=== PATIENT | female | born 1950 | race Caucasian/White ===

== ENCOUNTER → 2017-04-20 | Outpatient (POV) | payer MEDICARE, SELFPAY | PROVIDERS: Visit Provider Internal Medicine Cardiovascular Disease | DX: R00.0 Tachycardia, unspecified (principal); I25.10 Atherosclerotic heart disease of native coronary artery without angina pectoris; I11.9 Hypertensive heart disease without heart failure; E78.5 Hyperlipidemia, unspecified; I42.9 Cardiomyopathy, unspecified; I49.5 Sick sinus syndrome; Z95.0 Presence of cardiac pacemaker; G47.33 Obstructive sleep apnea (adult) (pediatric) | CPT/HCPCS: 93005 ==

== ENCOUNTER 2017-10-19 16:12 | Observation (INO) | payer MEDICARE, SELFPAY ==
[2017-10-18 13:08] VITALS: BMI 40.2
[2017-10-19] VITALS (17 sets, daily range): BP systolic 107–132; BP diastolic 53–82; PULSE 59–125; RESP 14–20; TEMP 36.1–36.6; O2SAT 94–100; BMI 40.4
--- NOTE | 2017-10-19 | XR_ITS ---
XR chest portable HISTORY: ITS.REASON: atrial lead revision ORDERING PHYSICIAN: Roverto Jo MD PATIENT AGE: 67 years COMPARISON: None FINDINGS: Mild cardiomegaly without failure. Bipolar pacemaker is present from left subclavian approach. Right atrial and right ventricular leads are present in good position. No evidence of pneumothorax. Skin clips are present in the left upper chest. Prominent right peritracheal calcified lymph node once again noted. IMPRESSION: Cardiomegaly with bipolar pacemaker. No evidence of pneumothorax or other acute trauma
--- NOTE | 2017-10-19 08:02 | P.PN_ITS ---
[facility] Anesthesia Checklist - Structural Data Admitted From: Home Planned Operative Procedure/s: pacemaker lead revision Consent for Planned Operative Procedure(s) Verified: Yes Verified Documents: Surgical Consent - Airway Assessment C-Spine Mobility Assessed: Yes TMJ Mobility Assessed: Yes Dentition: Good Dentition - Neurological Assessment Level of Consciousness: Awake, Alert, Appropriate - Anesthesia Plan Anesthesia Risk discussed: Yes Anesthesia Plan: Verified ASA Class: III Anesthesia Type: MAC [facility] Anesthesia HX I have reviewed the patient's past medical history: Yes Medical History: Reports:: Cancer, Coronary Artery Disease, Hyperlipidemia, Hypertension, Internal Pacemaker, Kidney Stones Denies:: Diabetes Mellitus Type 1, Diabetes Mellitus Type 2, MRSA (h/o c-diff ) Other Medical History: Reports: Arthritis, Fibromyalgia, Hypothyroidism Laterality Cases: Bilateral: Arthroscopy Knee Other Surgeries: Yes: Angioplasty, Appendectomy, Hysterectomy-Total, Pacemaker, Other (Cholecystectomy) Amputation: No Fractures: No *Family Hx:: Heart Attack, Stroke
--- NOTE | 2017-10-19 09:00 | XR_ITS ---
XR pacemaker defibrillator CLINICAL INDICATION: Pacemaker insertion ITS.REASON: ATRIAL LEAD REVISION ORDERING PHYSICIAN: Roverto Jo MD PATIENT AGE: 67 years Comparison: None FINDINGS: 3 images submitted with C-arm showing interval insertion of bipolar pacemaker IMPRESSION: 3 images submitted with C-arm showing interval insertion of bipolar pacemaker Fluoroscopy time: 1 minute and 53 seconds
--- NOTE | 2017-10-19 16:23 | HMH.HPDC ---
General - General Admission date:: 10-19-2017 *Admission Date: 10/19/17 *Chief complaint: Atrial lead revision *History of present illness: 67-year-old white female with history of permanent pacemaker for sick sinus syndrome was noted to have no atrial capture on recent interrogation and was brought to the operative room as an outpatient for atrial lead revision. Initial operation with atrial lead revision and placement uncomplicated. Postoperatively atrial lead moved and patient required a second operation for atrial lead placement. Due to 2 surgeries in the same day the patient is to be kept overnight for observation. She had no complications from surgery either time. Patient has a history of coronary artery disease with coronary artery stenting in 2008, cardiac catheterization in 2017 showing mild coronary artery disease and an echocardiogram in early 2016 showing an ejection fraction of 40%. Patient has a history of frequent PVCs that required beta-sharon therapy. Patient developed significant bradycardia and had pacemaker implantation at that time. [facility] History Medical History: Reports:: Cancer, Coronary Artery Disease, Hyperlipidemia, Hypertension, Internal Pacemaker, Kidney Stones Denies:: Diabetes Mellitus Type 1, Diabetes Mellitus Type 2, MRSA (h/o c-diff), Seizures Other Medical History: Reports: Arthritis, Fibromyalgia, Hypothyroidism. Denies: Blood Transfusion Reaction Laterality Cases: Bilateral: Arthroscopy Knee Other Surgeries: Yes: Angioplasty, Appendectomy, Hysterectomy-Total, Pacemaker, Other (Cholecystectomy) Amputation: No Fractures: No - *Social History Educational Level: Completed College Smoking Status: Never smoker Alcohol Intake: never Occupational Status: retired Housing: house Household Members: spouse - Psychiatric History Expresses thoughts of harming self/others: None Suicide Plan Description: No Plan *Family Hx:: Heart Attack, Stroke Review of Systems - *Cardiovascular Denies chest pain, Denies shortness of breath with activity - *Respiratory Denies shortness of breath - *Gastrointestinal Denies abdominal pain - *Neurologic Denies abnormal walking, Denies seizure-like activity, Denies headache(s) Exam Vital signs and Labs for Last 24 Hours: Temp Pulse Resp BP Pulse Ox 97.6 F 123 H 20 132/65 98 10/19/17 13:40 10/19/17 13:40 10/19/17 13:40 10/19/17 13:40 10/19/17 13:40 I & O for Last 24 hours: Intake & Output 10/17/17 10/18/17 10/19/17 10/20/17 11:59 11:59 11:59 11:59 Intake Total Output Total 300 / 300 Balance -290 / -290 Weight 220 lb 0.271 oz - *Routine Neck Exam Absent: JVD, carotid bruit - *Routine Respiratory Exam Present: CTA bilaterally - *Routine Cardiovascular Exam Present: RRR. Absent: murmur, gallop - *Routine Extremities Exam Absent: edema - *Routine Neurological Exam Present: alert, oriented X3, moving all extremities Hospital Course Hospital Course: 67-year-old white female admitted after atrial lead revision for observation. Patient did have PVCs on telemetry which were symptomatic and treated with bisoprolol 5 mg daily with improvement in symptoms. This morning the patient is feeling well and ready to go home. Home medications will resume with the exception of increasing her bisoprolol to 5 mg daily. She will be sent home with Idalia 7.5/325 mg 1-2 every 6 as needed. She will have a follow-up with Dr. Jo in 10 days in [place]. DS: Diagnosis - Discharge Diagnosis (1) Cardiac pacemaker in situ Status: Acute (2) Cardiomyopathy Status: Acute (3) Coronary arteriosclerosis Status: Acute (4) Hypertensive heart disease Status: Acute (5) Pacemaker lead malfunction Status: Acute (6) Sick sinus syndrome Status: Acute Discharge Medications Discharge Medications: Home Medications Medication Instructions Recorded Confirmed Type aspirin 81 mg tablet,del
--- NOTE | 2017-10-19 16:27 | P.HPDS_ITS ---
General - General Admission date:: 10-19-2017 *Admission Date: 10/19/17 *Chief complaint: Atrial lead revision *History of present illness: 67-year-old white female with history of permanent pacemaker for sick sinus syndrome was noted to have no atrial capture on recent interrogation and was brought to the operative room as an outpatient for atrial lead revision. Initial operation with atrial lead revision and placement uncomplicated. Postoperatively atrial lead moved and patient required a second operation for atrial lead placement. Due to 2 surgeries in the same day the patient is to be kept overnight for observation. She had no complications from surgery either time. Patient has a history of coronary artery disease with coronary artery stenting in 2008, cardiac catheterization in 2017 showing mild coronary artery disease and an echocardiogram in early 2016 showing an ejection fraction of 40%. Patient has a history of frequent PVCs that required beta-sharon therapy. Patient developed significant bradycardia and had pacemaker implantation at that time. [facility] History Medical History: Reports:: Cancer, Coronary Artery Disease, Hyperlipidemia, Hypertension, Internal Pacemaker, Kidney Stones Denies:: Diabetes Mellitus Type 1, Diabetes Mellitus Type 2, MRSA (h/o c-diff ), Seizures Other Medical History: Reports: Arthritis, Fibromyalgia, Hypothyroidism. Denies : Blood Transfusion Reaction Laterality Cases: Bilateral: Arthroscopy Knee Other Surgeries: Yes: Angioplasty, Appendectomy, Hysterectomy-Total, Pacemaker, Other (Cholecystectomy) Amputation: No Fractures: No - *Social History Educational Level: Completed College Smoking Status: Never smoker Alcohol Intake: never Occupational Status: retired Housing: house Household Members: spouse - Psychiatric History Expresses thoughts of harming self/others: None Suicide Plan Description: No Plan *Family Hx:: Heart Attack, Stroke Review of Systems - *Cardiovascular Denies chest pain, Denies shortness of breath with activity - *Respiratory Denies shortness of breath - *Gastrointestinal Denies abdominal pain - *Neurologic Denies abnormal walking, Denies seizure-like activity, Denies headache(s) Exam Vital signs and Labs for Last 24 Hours: Temp Pulse Resp BP Pulse Ox 97.6 F 123 H 20 132/65 98 10/19/17 13:40 10/19/17 13:40 10/19/17 13:40 10/19/17 13:40 10/19/17 13:40 I & O for Last 24 hours: Intake & Output 10/17/17 10/18/17 10/19/17 10/20/17 11:59 11:59 11:59 11:59 Intake Total Output Total 300 / 300 Balance -290 / -290 Weight 220 lb 0.271 oz - *Routine Neck Exam Absent: JVD, carotid bruit - *Routine Respiratory Exam Present: CTA bilaterally - *Routine Cardiovascular Exam Present: RRR. Absent: murmur, gallop - *Routine Extremities Exam Absent: edema - *Routine Neurological Exam Present: alert, oriented X3, moving all extremities Hospital Course Hospital Course: 67-year-old white female admitted after atrial lead revision for observation. Patient did have PVCs on telemetry which were symptomatic and treated with bisoprolol 5 mg daily with improvement in symptoms. This morning the patient is feeling well and ready to go home. Home medications will resume with the exception of increasing her bisoprolol to 5 mg daily. She will be sent home with Rolla 7.5/325 mg 1-2 every 6 as needed. She will have a follow-up wit
[2017-10-20] VITALS: BP 112/55; PULSE 58; PULSE 64; RESP 16; TEMP 37.2; O2SAT 97
[2017-10-20 04:00] VITALS: BP 102/51; PULSE 60; PULSE 61; RESP 16; TEMP 36.6; O2SAT 98
--- NOTE | 2017-10-20 04:03 | PC.NURSE ---
PATIENT SEEMS HAVE RESTED WELL THIS SHIFT. SHE C/O FLUTTERING SENSATION EARLIER IN SHIFT (SEE PREVIOUS NOTE), HOWEVER HAS NOT COMPLAINED OF THIS ANYMORE THIS SHIFT. PATIENT HAS RECEIVED PAIN MEDICATION X2 FOR INCISION PAIN, WHICH SHE STATED WAS EFFECTIVE. GIFT WRAPPER CONTINUES TO SHOW AN AV PACED RHYTHM WITH PVCS. DRESSING TO LEFT CHEST WALL IS CDI. CPAP IS IN PLACE. PATIENT IS INDEPENDENT WITH ADLS. PATIENT IS CURRENTLY IN BED ASLEEP. NO OTHER PROBLEMS NOTED AT THIS TIME. VSS. WILL CONTINUE TO MONITOR.
--- NOTE | 2017-10-20 07:00 | XR_ITS ---
XR chest 2V Ordering Physician: Roverto Jo MD Patient Age: 67 years: Female HISTORY: ITS.REASON: post op pacer wire repositioning Pacemaker wire repositioning difficult TECHNIQUE: PA lateral chest COMPARISON: portable chest 10/19/2017 at 1500 hours. Also fluoroscopy from pacemaker placement 10/19/2017 at 1357 hours & 1104 hours. November 2016 pCXR also utilized for comparison FINDINGS Images reviewed with with Wiley & other cardiology pediatric dental assistant Pacemaker overlies the left chest. Skin jennifer reflect recent involvement here accessing the pacemaker. On yesterday's 10/19/2017 radiograph the atrial pacemaker wire was directed laterally at the RA. On today's study it is moved to a more midline vertical position at likely at entry to the right atria or caval atrial junction region. Images reviewed with cardiology staff The ventricular lead remains stable position. Unchanged. The pacemaker itself appears unchanged overlying the left chest. The lungs remain clear no active disease. Mild cardiomegaly left ventricular configuration. The dense calcified right paratracheal node is again observed. Multiple monitor leads evident IMPRESSION: 1. Lungs clear no active disease in the chest 2. Cardiomegaly with pacemaker overlying the left chest. The ventricular lead appears stable. However would note that there is subtle change in the position and course of the atrial lead when compared to yesterday's study. . These images reviewed with cardiology staff members sent for
[2017-10-20 07:02] LABS: Basophils % 0.4 % (0.1-2.0); Eosinophils # 0.1 K/mm3 (0.0-0.4); Eosinophils % 1.6 % (0.1-12.0); Hemoglobin 13.8 g/dL (12.2-16.2); Lymphocytes # 2.3 K/mm3 (0.7-4.5); Mean Corpuscular HGB Conc 32.1 g/dL (31.8-35.4); Mean Corpuscular Volume 93.4 fl (81-99); Monocytes # 0.4 K/mm3 (0.1-1.0); Neutrophils # 3.9 K/mm3 (1.8-7.8); Platelet Count 218 K/mm3 (142-424); Red Cell Distribution Width 13.5 % (11.5-17.5); White Blood Count 6.8 K/mm3 (4.8-10.8)
--- NOTE | 2017-10-20 07:28 | HMH.PHAVTE ---
[facility] VTE Monitoring - Patient Demographics Admission date: 10/19/17 Report Date: 10/20/17 Time: 07:28 Allergies/Adverse Reactions: Patient Allergies No Known Allergies Allergy (Unverified 05/02/17 14:17) Height: 1.57 m Weight: 99.8 kg - VTE Risk Labs: VTE Related Lab Results Hgb 13.8 g/dL (12.2-16.2) 10/20/17 06:50 Hct 43.0 % (37.0-47.0) 10/20/17 06:50 Plt Count 218 K/mm3 (142-424) 10/20/17 06:50 VTE Score: 3 VTE Risk Level: Low Risk - Prophylaxis VTE Prophylaxis Ordered?: Yes Types of VTE Prophylaxis: TEDS Knee High Location of Applied Device: Bilateral Lower Extremeties - VTE Diagnosis Confirmed Treatment or plan recommended: Continue Current Treatment
--- NOTE | 2017-10-20 07:50 | PC.NURSE ---
REPORT GIVEN TO Jose HOLGUIN RN
[2017-10-20 08:00] VITALS: BP 123/63; PULSE 60; RESP 18; TEMP 36.9; O2SAT 96
--- NOTE | 2017-10-20 11:51 | CA_ITS ---
PROCEDURE: 2-D M-mode and color Doppler study INDICATIONS FOR THE TEST: Chest pain COPD Heart Murmur Tobacco Smoking Palpitations Fatigue Syncope Edema HypertensionXDiabetes Mellitus Rheumatic Fever SOB MEDRANO Obesity HyperlipidemiaX Family History HD Additional History PACEMAKER LEAD REVISION,CAD PATIENT INFORMATION HEIGHT: 61 WEIGHT:220 GENDER: Female B/P:132/65 2-D/M-MODE INTERPRETATION: 2-D MEASUREMENTS OBSERVED VALUES IN CMS Right Ventricular Dimension (RVDd) 3.2 Interventricular Septum (Thickness)(IVsd) .9 Left Ventricular Internal Dimensions(LVIDd) 5.6 Left Ventricular Posterior Wall (Thickness)(LVPWd) .9 Aortic Root 2.2 Aortic Cusp Separation 1.5 Left Atrial Dimensions (LAD) 3.6 2D 1. Left atrium is qualitatively moderately enlarged, left ventricle is qualitatively mildly dilated, there is severely reduced left ventricular systolic function, visually estimated ejection fraction approximately 25-30%, there is abnormal septal motion. 2. The right atrium and right ventricle are mildly enlarged, contractility of the right ventricle is normal, there is a pacemaker lead seen in the right atrium and right ventricle. 3. The aortic valve is minimally thickened and calcified. Leaflet continue to display good mobility. 4. The mitral valve leaflets are minimally thickened. 5. The tricuspid valve leaflets are minimally thickened. 6. The pulmonic valve is poorly visualized 7. No significant pericardial effusion noted. DOPPLER INTERROGATION: Doppler interrogation of the aortic, mitral and tricuspid valvular presence of mild mitral and moderate tricuspid regurgitation, calculated right ventricular systolic pressure is 44 mmHg consistent with moderate pulmonary hypertension, grade 1 diastolic dysfunction seen with tissue Doppler evidence of raised left atrial pressure. Inferior vena cava is dilated without significant inspiratory collapse. CONCLUSION: 1. Moderately enlarged left atrium, mildly dilated left ventricle, visually estimated ejection fraction of 25-30%, left ventricle is globally hypokinetic, there is abnormal septal motion. Grade 1 diastolic dysfunction seen with tissue Doppler evidence of raised left atrial pressure. Inferior vena cava is dilated without significant ventricular. 2. Mild mitral and moderate tricuspid regurgitation, calculated right ventricular systolic pressure 44 mmHg consistent with moderate pulmonary hypertension. 3. No significant pericardial effusion noted.
--- NOTE | 2017-10-20 11:52 | CT_ITS ---
CT chest w con Ordering Physician: Roverto Jo MD Patient Age: 67 years: Female HISTORY: ITS.REASON: Evaluate cardiac anatomy, ?carcinoid heart TECHNIQUE: Helical CT scanning performed at [facility] following 75 cc [id number]... Axial sagittal and coronal reconstructions performed on CT workstation. All CT scans at this facility used one or more dose reduction techniques , viz: automatic exposure control, ma/Kv adjustment per patient's size, (including targeted exam where dose matched to the indication; i.e. head); or iterative reconstruction technique COMPARISON :Plain films chest FINDINGS Thyroid. There is a 13 mm nodule lower pole right lobe of thyroid. With Likely a 11 mm mm nodule at the isthmus.. There is a near 18 mm ovoid area behind the head of the left clavicle. I tend to favor this is more the confluence of the generous left jugular and left subclavian vein rather than a early left supraclavicular node. But the timing on this particular study did allow filling of venous structures here to to confirm this as a venous structure. Viewing anatomy I still tend to favor this is a generous confluence of venous structures. . Superior mediastinum unremarkable.. No mediastinal adenopathy. Hilar regions satisfactory. No evidence of pulmonary embolism. Only faint contrast within the aorta but it appears satisfactory &. Normal caliber. Heart appears mildly enlarged with multichamber enlargement. There is good enhancement and contrast throughout the right atria and right ventricle. No good evidence of mass or lesion here. Perhaps some very minor trabeculations at the superior most aspect of the atria on coronal images but these are equivocal and minimal and could merely reflect some flow artifact. The atrial pacemaker lead is seen at midportion of generous size right atria. The ventricular AV pacemaker lead is seen extending to the tip of the right ventricle. The pacemaker itself overlies the upper left chest. No pericardial effusion. Coronary calcification most pronounced at the LAD Lung carrizales. Slight coarsening of interstitial pattern could reflect some mild interstitial edema possibly. Versus underlying some chronic interstitial changes as well. There do seem to be some mild fibrotic changes bilaterally at the DVT upper lung carrizales posteriorly. Favor fibrotic changes less likely early infiltrate at the posterior right upper lobe. Borderline airway thickening. No discrete pleural effusion. Understand dialysis patient. Images reviewed with [facility] cardiology. Uppermost abdomen with no significant findings. Cholecystectomy noted ------IMPRESSION --------- 1.. Cardiomegaly. Multichamber enlargement AV pacemaker and leads are identified. 2. Good contrast throughout right heart.-With this note generous size right atria but with no evidence of right atrial mass or lesion. 3. Mild diffuse interstitial coarsening which likely reflects some underlying interstitial fibrotic changes and possibly minimal vascular congestion/or mild fluid overload superimposed. 4. Additional Accentuation interstitial at posterior right lung apex.- Difficult to exclude minimal infiltrate here but didn't favor mainly viewing fibrotic changes. 5. Thyroid nodules: 13 mm nodule lower pole right lobe thyroid. & 11 mm nodule isthmus 6. Note 18 mm ovoid area at base of left neck, most likely reflecting generous vein at confluence of jugular & left subclavian vein. However today's timing No contrast here to confirm as venous structure on today's scan. Doubt supraclavicular node but warrants clinical follow-up
--- NOTE | 2017-10-20 11:57 | PC.NURSE ---
pt awaiting further testing before leaving per dr. hutchinson
--- NOTE | 2017-10-20 12:30 | PC.NURSE ---
FACE TO FACE WITH FRANCIE CONFIRMED WITH HIM THAT CT WITH CONTRAST WAS NEEDED. THAT PT IV WAS PULLED DUE TO BEING DISCHARGED AND WOULD HAVE TO BE REINSERTED. WAS INFORMED THAT CONTRAST WAS NEEDED AND THAT IV WOULD HAVE TO BE REINSERTED
[2017-10-20 13:09] LABS: Anion Gap 11.8 mEq/L (5-15); Blood Urea Nitrogen 13 mg/dL (7-18); Calcium 8.7 mg/dL (8.5-10.1); Carbon Dioxide 29 mmol/L (21.0-32.0); Chloride 107 mmol/L (98-107); Creatinine Clearance Estimated 42 mL/min (0-300); Creatinine,Serum 0.71 mg/dL (0.55-1.02); Estimated Glomerular Filt Rate 82 ml/min (>60); GFR (African American) 100 ML/MIN (>60); Glucose 96 mg/dL (74-106); Potassium 3.8 mmoL/L (3.5-5.1); Sodium 144 mmol/L (136-145)
--- NOTE | 2017-10-20 13:11 | PC.NURSE ---
report given to ashlee
--- NOTE | 2017-11-17 12:16 | HMH.PACER ---
[facility] Pacemaker - Pacemaker Placement Date of Procedure:: 10/26/17 Procedure Performed:: Pocket formation for permanent pacemaker placement Placement of atrial sensing pacing lead into the right atrial appendage Placement of ventricular sensing pacing lead into the right ventricular apex Permanent pacemaker placement Preoperative Diagnosis:: Sick Sinus Syndrome, Symptomatic Bradycardia Complications:: None Technique:: 1% Lidocaine with epinephrine used to anesthetize the left anterior aspect of the chest.Scalpel was used to make the initial cutaneous incision while electrocautery was used to dissect down into the fascia. The fascia was lifted off the pectoralis muscle and digitally manipulated creating a pocket for the pacemaker. The patient was then placed in Trendelenburg position and the subclavian vein was accessed via the Selinger technique. A 7 [place]an sheath was placed under fluoroscopic guidance into the subclavian vein. Following this, an additional wire was placed into the sheath. Now, with two wires inside the 7 [place]an sheath, this sheath was removed, maintaining the two wires in the subclavian vein. The sheath and dilator was then placed over one of the wires while keeping the other wire in place within the subclavian vein. The dilator was removed from the sheath. Using fluoroscopic guidance, the ventricular lead was placed into the right ventricular apex, screwed and secured into place. Electronic interrogation proved acceptable thresholds and voltage within the lead. Using 3-0 silk, the ventricular lead was then secured into place. Lead was secured to the fascia using the 3-0 silk. Following this, the sheath was pealed away. An additional 7 [place]an fresh sheath and dilator was placed over the existing wire. Using fluoroscopic guidance, the atrial lead was then placed into the right atrial appendage and screwed and secured in place. Electrical interrogation demonstrated acceptable thresholds and voltage numbers. The atrial lead was then secured into place using 3-0 silk and then the lead was finally secured to the fascia. With both the atria and ventricular leads in place with acceptable thresholds and sensitivity, the atrial and ventricular leads were placed into the pacemaker generator. Pacemaker generator was then secured to the fascia using 3-0 silk. 1 gram of Ancef was used to flush the pocket. Following the pacemaker being secured to the fascia and in place, Monocryl was used to close the subcutaneous layers while jennifer were used to close the cutaneous layer. A pressure dressing was placed and the patient was transferred to the postop holding area in stable condition for postoperative care. Impression:: Successful pocket formation for permanent pacemaker placement Successful placement of atrial and sensing pacing lead into the right atrial appendage Successful placement of ventricular sensing and pacing lead into the right ventricular apex Successful permanent pacemaker placement Plan: Postoperative wound care
--- NOTE | 2017-11-22 10:22 | HMH.PACER ---
[facility] Pacemaker - Pacemaker Placement Date of Procedure:: 10/19/17 Time of Procedure:: 08:30 Procedure Performed:: 1. Pocket revision 2. Removal of chronic right atrial sensing pacing lead. 3. Placement of an right atrial sensing pacing lead into the right atrial appendage. Preoperative Diagnosis:: Symptomatic Bradycardia Sick Sinus Syndrome Complications:: None Estimated Blood Loss (ml):: 10 Technique:: 1% lidocaine was used to anesthetize over the pacemaker site. Scalpel was used to make the cutaneous and incision and then dissected into the pocket. The generator was removed. The atrial lead was removed from the generator unscrewed from the left ventricle retracted under general pressure. Following this the left subclavian vein was accessed via the central technique and an 8 Romansh sheath was placed in the left subclavian vein. An atrial lead was then placed under fluoroscopic guidance into the right atrial appendage. The lead was secured into place with the distal screw. Interrogation was excellent therefore the lead was placed into the generator and the generator was placed back into the pocket after it was digitally manipulated and revised. 3-0 silk was used to secure the generator against the fascia. Following this Monocryl was used to close the subcutaneous area while jennifer were used to close the cutaneous area. Patient was transferred to the postop holding area in stable condition - Interrogation Narrative: Generator model number Assurity MRI 2272, Serial number [id number] New Atrial lead model number serial number [id number] model number [id number] Chronic Right Ventricular lead model number [id number], serial number [id number] RA: P wave >0.5 mV Threshold 0.75 V Impedance 460 Ohms pulse width 0.6ms RVA: Chronic R wave >12.0 mV Threshold 0.75 V Impedance 530 Ohms pulse width 0.4 ms Mode: DDDR with base tracking of 60 maximum tracking 125 Impression:: 1. Successful pocket revision 2. Successful removal of chronic atrial sensing pacing lead. 3. Successful placement of an new right atrial sensing pacing lead into the right atrial appendage. Plan: Postoperative wound care
--- NOTE | 2017-11-22 10:36 | P.PCN_ITS ---
[facility] Pacemaker - Pacemaker Placement Date of Procedure:: 10/19/17 Time of Procedure:: 08:30 Procedure Performed:: 1. Pocket revision 2. Removal of chronic right atrial sensing pacing lead. 3. Placement of an right atrial sensing pacing lead into the right atrial appendage. Preoperative Diagnosis:: Symptomatic Bradycardia Sick Sinus Syndrome Complications:: None Estimated Blood Loss (ml):: 10 Technique:: 1% lidocaine was used to anesthetize over the pacemaker site. Scalpel was used to make the cutaneous and incision and then dissected into the pocket. The generator was removed. The atrial lead was removed from the generator unscrewed from the left ventricle retracted under general pressure. Following this the left subclavian vein was accessed via the central technique and an 8 Greek sheath was placed in the left subclavian vein. An atrial lead was then placed under fluoroscopic guidance into the right atrial appendage. The lead was secured into place with the distal screw. Interrogation was excellent therefore the lead was placed into the generator and the generator was placed back into the pocket after it was digitally manipulated and revised. 3-0 silk was used to secure the generator against the fascia. Following this Monocryl was used to close the subcutaneous area while jennifer were used to close the cutaneous area. Patient was transferred to the postop holding area in stable condition - Interrogation Narrative: Generator model number Assurity MRI 2272, Serial number [id number] New Atrial lead model number serial number [id number] model number [id number] Chronic Right Ventricular lead model number [id number], serial number [id number] RA: P wave >0.5 mV Threshold 0.75 V Impedance 460 Ohms pulse width 0.6ms RVA: Chronic R wave >12.0 mV Threshold 0.75 V Impedance 530 Ohms pulse width 0.4 ms Mode: DDDR with base tracking of 60 maximum tracking 125 Impression:: 1. Successful pocket revision 2. Successful removal of chronic atrial sensing pacing lead. 3. Successful placement of an new right atrial sensing pacing lead into the right atrial appendage. Plan: Postoperative wound care
== END 2017-10-20 16:25 | disposition home or self-care (01) ==
LOC: 2ND 16:16
PROVIDERS: Physician Assistant; Admitting Provider Internal Medicine; PCP Family Medicine; Visit Provider Internal Medicine
DX: T82.190A Other mechanical complication of cardiac electrode, initial encounter; I49.5 Sick sinus syndrome; R00.1 Bradycardia, unspecified; Z45.018 Encounter for adjustment and management of other part of cardiac pacemaker
CPT/HCPCS: 33216; 36415; 71045; 71046; 71260; 80048; 85025; 93306; 94660; 96374; C1898; G0378; Q9967